=== PATIENT | male | born 1975 | race African-American/Black ===

== ENCOUNTER 2016-11-15 21:37 | Emergency (ER) | payer SELFPAY ==
[2016-11-15] MEDS ORDERED: IPRATROPIUM/ALBUTEROL 3 ML DEYVIAL IH ONE (21:45)
[2016-11-15 21:48] VITALS: TEMP 97.5
--- NOTE | 2016-11-15 21:57 | EDPHY ---
H & P Stated Complaint: cough Time Seen by Provider: 11/15/16 21:37 HPI/ROS: CHIEF COMPLAINT: Cough HISTORY OF PRESENT ILLNESS: 41-year-old male presents to the emergency department complaining of a 3 day history of a cough. Patient reports 3 days ago he was around cement and is wondering if he breathed any of this. Patient reports clear productive sputum. Cough is worse at night. No fevers or chills , no nasal congestion, no sore throat, no ear pain. Patient denies chest pain. Patient denies recent travel. No sick contacts. No neck pain. No nausea, vomiting or diarrhea, no abdominal pain. REVIEW OF SYSTEMS: A comprehensive 10 point review of systems is otherwise negative aside from elements mentioned in the history of present illness. Source: Patient, EMS Exam Limitations: No limitations - Physical Exam Exam: General: Alert, nontoxic. ENT: Tympanic membranes clear, external auditory canal, external ear and surrounding soft tissue including over the mastoid unremarkable. Nasopharynx is not injected, there is no rhinorrhea. Oropharynx without erythema or edema. There is no exudate. No tonsillar hypertrophy. No asymmetry. The uvula is midline. No elevation of tongue. There is no hoarseness. No drooling, patient has good control of their oral secretions. No trismus. No stridor. Cardiac: Regular rate and rhythm. Respiratory: Lungs clear to auscultation bilaterally. Neurological: no meningismus. Skin: No rashes. Constitutional: Initial Vital Signs Temperature (C) 36.4 C 11/15/16 21:46 Heart Rate 88 11/15/16 21:46 Respiratory Rate 20 11/15/16 21:46 Blood Pressure 147/96 H 11/15/16 21:46 O2 Sat (%) 94 11/15/16 21:46 O2 Delivery Mode Room Air Allergies/Adverse Reactions: No Known Allergies Allergy (Unverified 11/15/16 21:46) Home Medications: Medication Instructions Recorded Benzonatate [Tessalon Pearles (RX)] 100 mg PO Q8 PRN #12 cap 11/15/16 predniSONE 40 mg PO DAILY 4 Days tab 11/15/16 Medical Decision Making - Diagnostics Imaging Results: Imaging Impressions Chest X-Ray 11/15/16 21:45 Impression: Mild peribronchial thickening suggesting airways disease/bronchitis. Imaging: I viewed and interpreted images myself ED Course/Re-evaluation: Chest x-ray obtained, patient is given a DuoNeb and reports this has helped significantly with his coughing and breathing. Room air oxygen saturation is 94 %, he is afebrile and nontoxic-appearing. Lungs are clear to auscultation. Chest x-ray shows no evidence of pneumonia, mild airway thickening/bronchitis. Pt is given a dose of prednisone and tessalon pearls in the ED. He is discharged home with a prescription for a 4 day course of prednisone, an albuterol inhaler and an rx for tessalon pearls. Pt is given a pcp for follow up. He is given strict return precautions. Differential Diagnosis: Diagnosis considered but not limited to pneumonia, bronchitis, viral syndrome - Data Points Medications Given: Discontinued Medications Albuterol/Ipratropium (Duoneb) 3 ml IH EDNOW ONE Stop: 11/15/16 21:46 Last Admin: 11/15/16 21:51 Dose: 3 ml Departure - Departure Disposition: Home, Routine, Self-Care Clinical Impression: Cough in adult Condition: Good Instructions: Albuterol (By breathing), Acute Bronchitis (ED) Additional Instructions: Take 40mg of prednisone daily for 5 days. Use albuterol inhaler 2 puffs every 4 -6 hours as needed for cough. Take tessalon pearls as prescribed for cough. Use a humidifier at night, drink plenty of fluids. Follow up with your primary care doctor or the one listed for symptoms not improving in the next 48-72 hours. Return to the ED for worsening symptoms, new symptoms or concerns. Referrals: Jaime Caballero MD [Medical Doctor] - As per Instructions (primary care doctor clothes ironer) Prescriptions: Benzonatate [Tessalon Pearles (RX)] 100 mg PO Q8 PRN #12 cap PRN Reason: Cough, Moderate predniSONE 40 mg PO DAILY 4 Days tab
[2016-11-15] MEDS ORDERED: predniSONE 20 MG TAB PO ONE (22:08)
[2016-11-15] MEDS ORDERED: ALBUTEROL INH PREPACK MDI TAKEHOME ONE (22:11)
[2016-11-15] MEDS ORDERED: BENZONATATE 100 MG CAP PO ONE (22:11)
[2016-11-15 22:30] VITALS: BP 128/90; PULSE 79; RESP 16; O2SAT 93
== END 2016-11-15 22:31 | disposition home or self-care (01) ==
DX: R05 Cough (principal)